=== PATIENT | female | born 1965 | race Caucasian/White ===

== ENCOUNTER 2017-05-15 12:32 | Emergency (ER) | payer BC ==
[2017-05-15 12:39] VITALS: TEMP 98.2; BMI 29.4
--- NOTE | 2017-05-15 13:38 | PDOC ---
History of Present Illness - General History Source: Patient - History of Present Illness Initial Comments: 05/15/17 15:13 The patient is a 51 year old female, with a significant past medical history of HIV (CD4 >400, VL undetectable; on Atripla, 100% compliance) and asthma on daily Advair and Singulair, who presents to the emergency department with 2 days of right lower extremity swelling and pain. The patient reportedly saw her PCP, Dr. Vizcarra, and was advised to come to the ED for rule out DVT. The patient denies trauma to the affected extremity. The patient reports a pain to her medial right knee radiating inferiorly, posterior, and superiorly into her right groin. She denies a history of DVT or PE. She denies recent prolonged travels. She denies chest pain, shortness of breath, headache and dizziness. She denies fever, chills, nausea, vomit, diarrhea and constipation. She denies dysuria, frequency, urgency and hematuria. Allergies: NKDA <Consuelo French - Last Filed: 05/15/17 15:20> <Ciro Meehan - Last Filed: 05/16/17 16:15> - General Chief Complaint: Pain Stated Complaint: RX REFILL (PCP SENT) Time Seen by Provider: 05/15/17 13:37 Past History <Consuelo French - Last Filed: 05/15/17 15:20> - Past Medical History Anemia: Yes Asthma: No Cancer: No Cardiac Disorders: No CVA: No COPD: No CHF: No Dementia: No Diabetes: No GI Disorders: No Disorders: No HTN: No Hypercholesterolemia: Yes Liver Disease: Yes (fatty liver) Seizures: No Thyroid Disease: No Other medical history: HIV + - Suicide/Smoking/Psychosocial Hx Smoking History: Never smoked Have you smoked in the past 12 months: Yes Number of Cigarettes Smoked Daily: 1 If you are a former smoker, when did you quit?: 11/2015 Cigars Per Day: 0 Information on smoking cessation initiated: No Hx Alcohol Use: No Drug/Substance Use Hx: No Substance Use Type: None Hx Substance Use Treatment: No <Ciro Meehan - Last Filed: 05/16/17 16:15> - Past Medical History Allergies/Adverse Reactions: Allergies Allergy/AdvReac Type Severity Reaction Status Date / Time No Known Allergies Allergy Verified 05/15/17 12:39 Home Medications: Ambulatory Orders Mometasone Furoate [Nasonex] 2 inh NS DAILY #1 spray.pump 07/25/15 Albuterol 0.083% Nebulizer Amy [Ventolin 0.083% Nebulizer Soln -] 1 neb NEB Q6H #1 box 04/29/17 Albuterol Sulfate Inhaler - [Ventolin HFA Inhaler -] 1 - 2 inh PO QID PRN #1 inhaler 04/29/17 Dextran 70/Hypromellose [Artificial Tears] 1 each OP Q4H #1 bottle 04/29/17 Docusate Sodium [Colace -] 100 mg PO BID #60 capsule 04/29/17 Emtricitab/Rilpiviri/Tenof Ala [Odefsey Tablet] 1 tab PO DAILY #30 tablet Hydrocortisone 2.5% Topical Cr [Anusol-Hc -] 1 applic CA DAILY #1 tube 04/29/17 Ibuprofen 400 mg PO BID PRN #30 tablet 04/29/17 Loratadine [Claritin -] 10 mg PO DAILY #30 tablet 04/29/17 Montelukast Na [Singulair -] 10 mg PO HS #30 tablet 04/29/17 Psyllium Husk/Aspartame [Fiber Therapy Powder] 660 gm PO DAILY #1 bottle Sennosides [Senna -] 2 tab PO HS #60 tablet 04/29/17 Triamcinolone 0.1% Cream [Aristocort 0.1% Cream -] 1 applic TP BID #15 g Valacyclovir HCl [Valtrex -] 500 mg PO BID PRN #14 tablet 04/29/17 Review of Systems - Review of Systems Comments:: 05/15/17 15:14 GENERAL/CONSTITUTIONAL: No fever or chills. No weakness. HEAD, EYES, EARS, NOSE AND THROAT: No change in vision. No ear pain or discharge. No sore throat. CARDIOVASCULAR: No chest pain or shortness of breath. RESPIRATORY: No cough, wheezing, or hemoptysis. GASTROINTESTINAL: No nausea, vomiting, diarrhea or constipation. GENITOURINARY: No dysuria, frequency, or change in urination. MUSCULOSKELETAL: (+) RLE pain and swelling. No neck or back pain. SKIN: No rash NEUROLOGIC: No headache, vertigo, loss of consciousness, or change in strength/ sensation. ENDOCRINE: No increased thirst. No abnormal weight change. HEMATOLOGIC/LYMPHATIC: No anemia, easy bleeding, or history of blood clots. ALLERGIC/IMMUNOLOGIC: No hives or skin allergy. <Consuelo French - Last Filed: 05/15/17 15:20> *Physical Exam - Vital Signs Last Vital Signs Temp Pulse Resp BP Pulse Ox 98.2 F 87 18 96/67 97 05/15/17 12:35 05/15/17 12:35 05/15/17 12:35 05/15/17 12:35 05/15/17 12:35 - Physical Exam Comments: 05/15/17 15:15 GENERAL: Awake, alert, and fully oriented, in no acute distress HEAD: No signs of trauma EYES: PERRLA, EOMI, sclera anicteric, conjunctiva clear ENT: Auricles normal inspection, hearing grossly normal, nares patent, oropharynx clear without exudates. Moist mucosa NECK: Normal ROM, supple, no lymphadenopathy, JVD, or masses LUNGS: Breath sounds equal, clear to auscultation bilaterally. No wheezes, and no crackles HEART: Regular rate and rhythm, normal S1 and S2, no murmurs, rubs or gallops ABDOMEN: Soft, nontender, normoactive bowel sounds. No guarding, no rebound. No masses EXTREMITIES: (+) RLE: Tenderness to palpation of the right distal lower extremity. No evidence of erythema or increased warmth. mild non-pitting edema. Remainder of extremities have Normal range of motion, No clubbing or cyanosis. No cords, erythema, or tenderness NEUROLOGICAL: Cranial nerves II through XII grossly intact. Normal speech, normal gait SKIN: Warm, Dry, normal turgor, no rashes or lesions noted. <Consuelo French - Last Filed: 05/15/17 15:20> - Vital Signs Last Vital Signs Temp Pulse Resp BP Pulse Ox 98.2 F 87 18 96/67 97 05/15/17 12:35 05/15/17 12:35 05/15/17 12:35 05/15/17 12:35 05/15/17 12:35 <Ciro Meehan - Last Filed: 05/16/17 16:15> ED Treatment Course - RADIOLOGY Radiograph Interpretation: EXAM#: TYPE/EXAM: RESULT: [id number] US/DUPLEX VASCUL US-1 LEG HISTORY PROVIDED: Pain and swelling right lower extremity. Real time and doppler evaluation of the right lower extremity demonstrates the following: There is no evidence of deep venous thrombosis within the common, deep and superficial femoral veins, as well as the popliteal and posterior tibial veins. The greater saphenous vein is also patent. These veins are fully compressible, as well. IMPRESSION: No evidence of deep venous thrombosis. Reported By: Soy Forde MD 05/15/17 1516 <Consuelo French - Last Filed: 05/15/17 15:20> - LABORATORY CBC & Chemistry Diagram: 05/15/17 16:00 05/15/17 16:00 <Ciro Meehan - Last Filed: 05/16/17 16:15> *DC/Admit/Observation/Transfer - Attestations Scribe Attestion: 05/15/17 15:16 Documentation prepared by Consuelo French, acting as biomedical engineer for Ciro Meehan DO <Consuelo French - Last Filed: 05/15/17 15:20> - Attestations Physician Attestion: 05/15/17 13:38 I, Dr. Ciro Meehan, attest that this document has been prepared under my direction and personally reviewed by me in its entirety. I further attest, that it accurately reflects all work, treatment, procedures and medical decision -making performed by me. <Ciro Meehan - Last Filed: 05/16/17 16:15> Diagnosis at time of Disposition: Lymphadenopathy - Discharge Dispostion Disposition: HOME Condition at time of disposition: Improved - Referrals Referrals: Heather Heredia [facility] [Primary Care Provider] - - Patient Instructions Printed Discharge Instructions: HIV in People Over 50, Hepatitis A, DI for Lymphadenopathy Additional Instructions: Please follow up with your primary doctor within 2-3 days. Come back to the Emergency Department for any new, worsening and concerning symptoms Print Language: BULGARIAN - Post Discharge Activity
[2017-05-15] MEDS ORDERED: KETOROLAC TROMETHAMINE 60 MG/2 ML VIAL IM ONE (14:26)
--- NOTE | 2017-05-15 15:17 | PDOC ---
History of Present Illness - General Chief Complaint: Pain Stated Complaint: RX REFILL (PCP SENT) Time Seen by Provider: 05/15/17 13:37 History Source: Patient Exam Limitations: No Limitations - History of Present Illness Initial Comments: 05/15/17 15:08 51F with no pmh presents with right leg pain and swelling since last night. No dyspnea no hemoptysis. No recent rtravel, no recently bedridden, or sitting for prolonged periods of time. No active cancer, no previous DVT. no recent cast. Post-menauposal, not taking any hormones or supplements. Had 2 pregnancies with c-sections. 05/15/17 15:18 Past History - Past Medical History Allergies/Adverse Reactions: Allergies Allergy/AdvReac Type Severity Reaction Status Date / Time No Known Allergies Allergy Verified 05/15/17 12:39 Home Medications: Ambulatory Orders Mometasone Furoate [Nasonex] 2 inh NS DAILY #1 spray.pump 07/25/15 Albuterol 0.083% Nebulizer Amy [Ventolin 0.083% Nebulizer Soln -] 1 neb NEB Q6H #1 box 04/29/17 Albuterol Sulfate Inhaler - [Ventolin HFA Inhaler -] 1 - 2 inh PO QID PRN #1 inhaler 04/29/17 Dextran 70/Hypromellose [Artificial Tears] 1 each OP Q4H #1 bottle 04/29/17 Docusate Sodium [Colace -] 100 mg PO BID #60 capsule 04/29/17 Emtricitab/Rilpiviri/Tenof Ala [Odefsey Tablet] 1 tab PO DAILY #30 tablet Hydrocortisone 2.5% Topical Cr [Anusol-Hc -] 1 applic [place] DAILY #1 tube 04/29/17 Ibuprofen 400 mg PO BID PRN #30 tablet 04/29/17 Loratadine [Claritin -] 10 mg PO DAILY #30 tablet 04/29/17 Montelukast Na [Singulair -] 10 mg PO HS #30 tablet 04/29/17 Psyllium Husk/Aspartame [Fiber Therapy Powder] 660 gm PO DAILY #1 bottle Sennosides [Senna -] 2 tab PO HS #60 tablet 04/29/17 Triamcinolone 0.1% Cream [Aristocort 0.1% Cream -] 1 applic TP BID #15 g Valacyclovir HCl [Valtrex -] 500 mg PO BID PRN #14 tablet 04/29/17 Anemia: Yes Asthma: No Cancer: No Cardiac Disorders: No CVA: No COPD: No CHF: No Dementia: No Diabetes: No GI Disorders: No Disorders: No HTN: No Hypercholesterolemia: Yes Liver Disease: Yes (fatty liver) Seizures: No Thyroid Disease: No Other medical history: HIV + - Suicide/Smoking/Psychosocial Hx Smoking History: Never smoked Have you smoked in the past 12 months: Yes Number of Cigarettes Smoked Daily: 1 If you are a former smoker, when did you quit?: 11/2015 Cigars Per Day: 0 Information on smoking cessation initiated: No Hx Alcohol Use: No Drug/Substance Use Hx: No Substance Use Type: None Hx Substance Use Treatment: No Review of Systems - Review of Systems Able to Perform ROS?: Yes Is the patient limited Danish proficient: No Constitutional: No: Symptoms Reported HEENTM: No: Symptoms Reported Respiratory: No: Symptoms reported Cardiac (ROS): No: Symptoms Reported ABD/GI: No: Symptoms Reported : No: Symptoms Reported Musculoskeletal: Yes: See HPI Integumentary: No: Symptoms Reported Neurological: No: Symptoms reported All Other Systems: Reviewed and Negative *Physical Exam - Vital Signs Last Vital Signs Temp Pulse Resp BP Pulse Ox 98.2 F 87 18 96/67 97 05/15/17 12:35 05/15/17 12:35 05/15/17 12:35 05/15/17 12:35 05/15/17 12:35 - Physical Exam General Appearance: Yes: Nourished, Appropriately Dressed. No: Apparent Distress HEENT: positive: EOMI, RYAN, Normal ENT Inspection Neck: negative: Tender Respiratory/Chest: positive: Lungs Clear, Normal Breath Sounds. negative: Chest Tender Cardiovascular: positive: Regular Rhythm, Regular Rate, S1, S2 Vascular Pulses: Dorsalis-Pedis (R): 2+, Doralis-Pedis (L): 2+ Gastrointestinal/Abdominal: positive: Normal Bowel Sounds, Soft, Protuberent. negative: Tender Extremity: positive: Normal Capillary Refill, Swelling (2cm larger on right leg thigh included, superficial veins engorged, tender on palpation), Calf Tenderness. negative: Cyanosis Integumentary: positive: Normal Color, Dry, Warm Neurologic: positive: Fully Oriented, Alert, Normal Mood/Affect, Normal Response , Motor Strength 09/20 ED Treatment Course - LABORATORY CBC & Chemistry Diagram: 05/15/17 16:00 05/15/17 16:00 Medical Decision Making - Medical Decision Making 05/15/17 15:17 Well's Score for DVT is 3 (collateral superficial vein presents, entire leg swollen and localized tenderness along deep venous system) Duplex pending. 05/15/17 15:22 Real time and doppler evaluation of the right lower extremity demonstrates the following: There is no evidence of deep venous thrombosis within the common, deep and superficial femoral veins, as well as the popliteal and posterior tibial veins. The greater saphenous vein is also patent. These veins are fully compressible, as well. 05/15/17 18:50 Liver enzymes slightly elevated Alt>Ast. Follow up with pcp within 2-3 days. 05/15/17 19:13 This is likely a lymphadenopathy due to newly diagnosed HIV. Follow up with your primary physician *DC/Admit/Observation/Transfer Diagnosis at time of Disposition: Lymphadenopathy - Discharge Dispostion Disposition: HOME Condition at time of disposition: Improved Admit: No - Referrals Referrals: Heather Heredia [facility] [Primary Care Provider] - - Patient Instructions Printed Discharge Instructions: HIV in People Over 50, Hepatitis A, DI for Lymphadenopathy Additional Instructions: Please follow up with your primary doctor within 2-3 days. Come back to the Emergency Department for any new, worsening and concerning symptoms Print Language: ALBANIAN - Post Discharge Activity
[2017-05-15 16:24] LABS: BASO % 0.6 % (0-2.0); EOS # 0.3 #; EOS % 6.4 % (0-4.5); LYMPH # 1.4; MCH 30.6 pg (25.7-33.7); MCHC 33.7 g/dl (32.0-36.0); MEAN CELL VOLUME 90.6 fl (80-96); MEAN PLT VOLUME 8.9 fl (7.5-11.1); MONO # 0.6 #; NEUT # 2.2 #; PLATELET COUNT 178 K/MM3 (134-434); RDW 13.1 % (11.6-15.6); WHITE BLOOD COUNT 4.5 K/mm3 (4.0-10.0)
[2017-05-15 17:02] LABS: ANION GAP 6 (8-16); CO2 27 mmol/L (21-32); CREATININE 0.7 mg/dL (0.55-1.02); GLUCOSE,RANDOM 87 mg/dL (74-106)
[2017-05-15 17:03] LABS: ALBUMIN 4.1 g/dl (3.4-5.0); ALK PHOS 135 U/L (45-117); BILIRUBIN,TOTAL 0.3 mg/dL (0.2-1.0); SGOT/AST 84 U/L (15-37); SGPT/ALT 123 U/L (12-78); TOT PROT 7.7 g/dl (6.4-8.2)
[2017-05-15 18:03] VITALS: BP 107/63; PULSE 70
== END 2017-05-15 19:50 | disposition home or self-care (01) ==
LOC: JER 12:32
DX: R59.0 Localized enlarged lymph nodes (principal); Z21 Asymptomatic human immunodeficiency virus [HIV] infection status; E78.00 Pure hypercholesterolemia, unspecified; K76.0 Fatty (change of) liver, not elsewhere classified; Z87.891 Personal history of nicotine dependence
CPT/HCPCS: 36415; 80053; 84550; 85025; 85379; 93971-TC; 99283-25